=== PATIENT | male | born 1980 | race African-American/Black ===

== ENCOUNTER 2018-05-24 02:25 | Inpatient (IN) | payer BC ==
[~2018-05-24] VITALS: Ht 172.7 cm; Wt 136.1 kg
[2018-05-24 06:49] LABS: BASOPHILS % 0.8 % (0.0-2.0); HEMATOCRIT. 38.9 % (42.0-52.0); HEMOGLOBIN. 12.5 g/dL (14.0-18.0); LYMPHOCYTES % 23.6 % (20.0-50.0); MEAN CORPUSCULAR HEMOGLOBIN 29.3 pg (28.0-32.0); MEAN CORPUSCULAR VOLUME 91.3 fL (80.0-94.0); MEAN PLATELET VOLUME 10.7 fl (7.4-10.4); MONOCYTES % 3.8 % (2.0-8.0); NEUTROPHILS % 70.8 % (40.0-76.0); PLATELET 379 x1000/uL (130-400); RED BLOOD CELL COUNT 4.26 mill/uL (4.7-6.1); RED CELL DISTRIBUTION WIDTH 15.1 % (11.6-14.6)
[2018-05-24 07:03] LABS: CHLORIDE 108 mEq/L (98-107)
[2018-05-24 07:20] LABS: *AMPHETAMINES SCREEN URINE NEGATIVE (NEGATIVE); *BARBITURATES SCREEN URINE NEGATIVE (NEGATIVE); *BENZODIAZEPINES SCREEN URINE NEGATIVE (NEGATIVE); *COCAINE SCREEN URINE NEGATIVE (NEGATIVE); CANNABINOID URINE SCREEN NEGATIVE (NEGATIVE); METHADONE URINE SCREEN NEGATIVE (NEGATIVE); OPIATES URINE SCREEN NEGATIVE (NEGATIVE); PHENCYCLIDINE URINE SCREEN NEGATIVE (NEGATIVE)
[2018-05-24] MEDS ORDERED: FUROSEMIDE 40MG/4ML VIAL IV ONE (07:45)
[2018-05-24] MEDS ORDERED: NITROGLYCERIN 0.4MG TABLET SL SL PRN (07:45)
[2018-05-24] MEDS ORDERED: ASPIRIN 81MG TABLET PO ONE (07:45)
[2018-05-24 15:36] VITALS: BP 115/64
[2018-05-24] MEDS ORDERED: CARV3.1242 PO (18:38)
[2018-05-24] MEDS ORDERED: SACU1TAB PO (18:38)
[2018-05-24] MEDS ORDERED: ATOR20TA65 PO (18:38)
[2018-05-24] MEDS ORDERED: FURO40TA5 PO (18:38)
[2018-05-24 20:00] VITALS: BP 97/51
[2018-05-24] MEDS ORDERED: ONDANSETRON HCL 4MG/2ML INJ IV PRN (20:15)
[2018-05-24] MEDS ORDERED: CLONIDINE 0.1MG TABLET PO PRN (20:15)
[2018-05-24] MEDS ORDERED: METOLAZONE 10MG TABLET PO SCH (20:15)
[2018-05-24] MEDS ORDERED: MAGNESIUM/ALUMINUM HYDROXIDE/SIMETHICONE 30ML UDC PO PRN (20:15)
[2018-05-24] MEDS ORDERED: ACETAMINOPHEN 325MG TABLET PO PRN (20:15)
[2018-05-24] MEDS ORDERED: ZOLPIDEM TARTRATE 5MG TABLET PO PRN (20:15)
[2018-05-24] MEDS: CARVEDILOL 3.125 MG TABLET PO SCH (20:38)
[2018-05-24] MEDS ORDERED: FUROSEMIDE 40MG/4ML VIAL IVP SCH (21:00)
[2018-05-24] MEDS: ENOXAPARIN 30MG/0.3ML SYR SUBCUT SCH (21:56)
[2018-05-24] MEDS: ATORVASTATIN CALCIUM 20MG TABLET PO SCH (21:56)
[2018-05-24] MEDS: SODIUM CHLORIDE 0.9% INJ 3ML FLUSH IVF SCH (21:57)
[2018-05-25] VITALS: BP 104/71
[2018-05-25 04:00] VITALS: BP 119/80
[2018-05-25] MEDS: SODIUM CHLORIDE 0.9% INJ 3ML FLUSH IVF SCH ×3 (05:17→21:29)
[2018-05-25 07:36] LABS: CHLORIDE 103 mEq/L (98-107)
[2018-05-25 08:00] VITALS: BP 117/86
[2018-05-25] MEDS: CARVEDILOL 3.125 MG TABLET PO SCH ×2 (10:44→21:00)
[2018-05-25] MEDS: ENOXAPARIN 30MG/0.3ML SYR SUBCUT SCH ×2 (10:45→21:29)
[2018-05-25 12:00] VITALS: BP 123/76
[2018-05-25] MEDS ORDERED: LOSARTAN POTASSIUM 25 MG TABLET PO SCH (14:15)
[2018-05-25] MEDS ORDERED: METOLAZONE 10MG TABLET PO SCH (14:15)
[2018-05-25] MEDS: POTASSIUM CHLORIDE 20MEQ TABLET SR PO SCH ×2 (14:43→21:28)
[2018-05-25] MEDS: FUROSEMIDE 40MG/4ML VIAL IVP SCH (14:51)
[2018-05-25 16:00] VITALS: BP 118/80
[2018-05-25 20:00] VITALS: BP 101/42
[2018-05-25] MEDS: ATORVASTATIN CALCIUM 20MG TABLET PO SCH (21:29)
[2018-05-26] VITALS: BP 106/61
[2018-05-26 04:00] VITALS: BP 100/65
[2018-05-26] MEDS: SODIUM CHLORIDE 0.9% INJ 3ML FLUSH IVF SCH ×2 (05:48→09:37)
[2018-05-26] MEDS: FUROSEMIDE 40MG/4ML VIAL IVP SCH ×2 (05:48→17:12)
[2018-05-26 07:19] LABS: CHLORIDE 98 mEq/L (98-107)
[2018-05-26 07:29] LABS: BASOPHILS % 0.7 % (0.0-2.0); EOSINOPHILS % 1.7 % (0.0-5.0); HEMATOCRIT. 43.2 % (42.0-52.0); HEMOGLOBIN. 14.2 g/dL (14.0-18.0); LYMPHOCYTES % 23.7 % (20.0-50.0); MEAN CORPUSCULAR HEMOGLOBIN 29.5 pg (28.0-32.0); MEAN CORPUSCULAR VOLUME 89.7 fL (80.0-94.0); MEAN PLATELET VOLUME 9.4 fl (7.4-10.4); MONOCYTES % 5.2 % (2.0-8.0); NEUTROPHILS % 68.7 % (40.0-76.0); PLATELET 342 x1000/uL (130-400); RED BLOOD CELL COUNT 4.82 mill/uL (4.7-6.1); RED CELL DISTRIBUTION WIDTH 15.1 % (11.6-14.6)
[2018-05-26 08:00] VITALS: BP 114/81
[2018-05-26] MEDS: POTASSIUM CHLORIDE 20MEQ TABLET SR PO SCH ×2 (09:36→17:12)
[2018-05-26] MEDS: CARVEDILOL 3.125 MG TABLET PO SCH (09:36)
[2018-05-26] MEDS: ENOXAPARIN 30MG/0.3ML SYR SUBCUT SCH (09:37)
[2018-05-26 12:00] VITALS: BP 117/77
[2018-05-26 16:00] VITALS: BP 120/88
[2018-05-26 16:56] VITALS: BP 120/88
== END 2018-05-26 17:35 | disposition home or self-care (01) | DRG 291 ==
LOC: ER 02:25 → EDBEDREQ 07:50 → ENRESERV 09:23 → 7WST 10:26
PROVIDERS: ADMIT Internal Medicine; ATTEND Internal Medicine
DX: I11.0 Hypertensive heart disease with heart failure (principal); E43 Unspecified severe protein-calorie malnutrition; Z68.42 Body mass index [BMI] 45.0-49.9, adult; E87.6 Hypokalemia; I50.23 Acute on chronic systolic (congestive) heart failure; E66.01 Morbid (severe) obesity due to excess calories; E78.00 Pure hypercholesterolemia, unspecified; E78.5 Hyperlipidemia, unspecified; I42.0 Dilated cardiomyopathy; Z82.49 Family history of ischemic heart disease and other diseases of the circulatory system; Z83.3 Family history of diabetes mellitus; Z79.899 Other long term (current) drug therapy
CPT/HCPCS: 36415; 71045; 80048; 80305; 83735; 83880; 84484; 93005; 93306; 93970; 96374; 99291; J1650; J1940

== ENCOUNTER 2019-06-21 13:05 | Inpatient (IN) | payer BC ==
[~2019-06-21] VITALS: Ht 172.7 cm; Wt 155.6 kg
[~2019-06-21 13:05] MED LIST: ATOR20TA65 PO; CARV3.1242 PO; FURO80TA87 MT; SACU1TAB PO
[2019-06-21] MEDS ORDERED: SODIUM CHLORIDE 0.9% 1000ML BAG (SEPSIS BOLUS) IV ONE (13:30)
[2019-06-21] MEDS ORDERED: LEVOFLOXACIN 750MG PREMIX 150 ML IV ONE (13:30)
[2019-06-21] MEDS ORDERED: EPINEPHRINE 1:1000 1 MG/ML AMP INJ ONE ×2 (13:45→14:15)
[2019-06-21] MEDS ORDERED: ALBUTEROL (0.083%) 2.5MG/3ML NEB HHN ONE (13:45)
[2019-06-21] MEDS ORDERED: IPRATROPIUM BROMIDE (0.02%) 0.5MG/2.5ML NEB HHN ONE (13:45)
[2019-06-21] MEDS: FUROSEMIDE 100MG/10ML VIAL IVP ONE ×2 (13:48→14:11)
[2019-06-21 13:54] LABS: BASOPHILS % 0.7 % (0.0-2.0); EOSINOPHILS % 0.2 % (0.0-5.0); HEMATOCRIT. 43.1 % (42.0-52.0); HEMOGLOBIN. 14.2 g/dL (14.0-18.0); LYMPHOCYTES % 11.7 % (20.0-50.0); MEAN CORPUSCULAR HEMOGLOBIN 29.8 pg (28.0-32.0); MEAN CORPUSCULAR VOLUME 90.4 fL (80.0-94.0); MEAN PLATELET VOLUME 9.5 fl (7.4-10.4); MONOCYTES % 5.9 % (2.0-8.0); NEUTROPHILS % 81.5 % (40.0-76.0); PLATELET 214 x1000/uL (130-400); RED BLOOD CELL COUNT 4.77 mill/uL (4.7-6.1); RED CELL DISTRIBUTION WIDTH 15.4 % (11.6-14.6)
[2019-06-21 14:02] LABS: INR 1.2; PROTHROMBIN TIME 12.4 sec (9.6-11.0)
[2019-06-21 14:10] LABS: CHLORIDE 102 mEq/L (98-107)
[2019-06-21] MEDS ORDERED: METHYLPREDNISOLONE SOD SUCC 125 MG/2 ML VIAL IV ONE (14:15)
[2019-06-21 14:40] LABS: BG BASE EXCESS -1.8 mmol/L (-2.0-2.0); BG CARBOXYHEMOGLOBIN 1.6 % (0.5-1.5); BG DEOXYHEMOGLOBIN 1.3 % (0.0-5.0); BG FRACTION INSPIRED OXYGEN 60; BG HCO3 ACT 22.2 mmol/L (22.0-26.0); BG METHEMOGLOBIN 0.2 % (0.0-1.5); BG OXYGEN SATURATION 98.7 % (92.0-98.5); BG OXYHEMOGLOBIN 96.9 % (94.0-97.0); BG PCO2 35.9 mmHg (35.0-45.0); BG PO2 127.7 mmHg (75.0-100.0); BG SAMPLE SITE RIGHT RADIAL; BG TOTAL HEMOGLOBIN 14.1 g/dL (12.0-18.0)
[2019-06-21 18:00] VITALS: BP 132/67
[2019-06-21 19:30] VITALS: BP 129/29
[2019-06-21 20:00] VITALS: BP 129/29
[2019-06-21] MEDS ORDERED: IPRATROPIUM/ALBUTEROL 0.5-3(2.5)MG/3ML NEB NEB PRN (20:45)
[2019-06-21] MEDS ORDERED: HYDROCODONE/ACETAMINOPHEN 5/325MG TABLET PO PRN (20:45)
[2019-06-21] MEDS ORDERED: CLONIDINE 0.1MG TABLET PO PRN (20:45)
[2019-06-21] MEDS ORDERED: ONDANSETRON HCL 4MG/2ML INJ IV PRN (20:45)
[2019-06-21 22:00] VITALS: BP 129/108
[2019-06-21] MEDS ORDERED: PNEUMOCOCCAL 23-VAL P-SAC VAC 0.5 ML IM ONE (23:15)
[2019-06-21] MEDS ORDERED: INFLUENZA VIRUS VACCINE(AFLURIA) 0.5ML SYR IM ONE (23:15)
[2019-06-22] VITALS (12 sets, daily range): BP systolic 101–148; BP diastolic 51–98
[2019-06-22 00:06] LABS: *AMPHETAMINES SCREEN URINE NEGATIVE (NEGATIVE); *BARBITURATES SCREEN URINE NEGATIVE (NEGATIVE); *BENZODIAZEPINES SCREEN URINE NEGATIVE (NEGATIVE); *COCAINE SCREEN URINE NEGATIVE (NEGATIVE); METHADONE URINE SCREEN NEGATIVE (NEGATIVE); OPIATES URINE SCREEN NEGATIVE (NEGATIVE); PHENCYCLIDINE URINE SCREEN NEGATIVE (NEGATIVE)
[2019-06-22 00:07] LABS: CANNABINOID URINE SCREEN NEGATIVE (NEGATIVE)
[2019-06-22] MEDS ORDERED: SPIR25TA6 MT (00:20)
[2019-06-22] MEDS ORDERED: POTA10TA11 PO (00:20)
[2019-06-22] MEDS ORDERED: ASPI-1393 PO (00:20)
[2019-06-22] MEDS ORDERED: SACU1TAB7 MT (00:20)
[2019-06-22] MEDS: FUROSEMIDE 40MG/4ML VIAL IV SCH ×3 (00:36→17:23)
[2019-06-22] MEDS: THIAMINE HCL 100MG TABLET PO SCH ×2 (00:36→08:33)
[2019-06-22] MEDS: ASPIRIN 81MG EC TABLET PO SCH (08:33)
[2019-06-22] MEDS: ENOXAPARIN 40MG/0.4ML SYR SUBCUT SCH ×2 (10:26→20:33)
[2019-06-22] MEDS ORDERED: NON FORMULARY PATIENT HOME MED XX SCH (11:00)
[2019-06-22 11:30] LABS: CLARITY URINE CLEAR (CLEAR); COLOR URINE YELLOW (YELLOW); KETONES URINE NEGATIVE (NEGATIVE); LEUKOCYTE ESTERASE URINE NEGATIVE (NEGATIVE); NITRITE URINE NEGATIVE (NEGATIVE); OCCULT BLOOD URINE NEGATIVE (NEGATIVE); PROTEIN URINE NEGATIVE (NEGATIVE)
[2019-06-22] MEDS: SACUBITRIL/VALSARTAN 49MG/51MG TABLET PO SCH ×2 (11:57→20:34)
[2019-06-22] MEDS: SPIRONOLACTONE 25MG TABLET PO SCH (11:57)
[2019-06-22] MEDS: AZITHROMYCIN 500 MG TABLET PO SCH (17:23)
[2019-06-22] MEDS: CARVEDILOL 12.5MG TABLET PO SCH (20:33)
[2019-06-23] VITALS (10 sets, daily range): BP systolic 100–157; BP diastolic 29–82
[2019-06-23 06:30] LABS: BASOPHILS % 0.5 % (0.0-2.0); EOSINOPHILS % 0.6 % (0.0-5.0); HEMATOCRIT. 41.7 % (42.0-52.0); HEMOGLOBIN. 13.5 g/dL (14.0-18.0); LYMPHOCYTES % 27.4 % (20.0-50.0); MEAN CORPUSCULAR VOLUME 89.8 fL (80.0-94.0); MONOCYTES % 8.3 % (2.0-8.0); NEUTROPHILS % 63.2 % (40.0-76.0); PLATELET 202 x1000/uL (130-400); RED BLOOD CELL COUNT 4.65 mill/uL (4.7-6.1); RED CELL DISTRIBUTION WIDTH 15.3 % (11.6-14.6)
[2019-06-23 07:13] LABS: CHLORIDE 100 mEq/L (98-107)
[2019-06-23] MEDS: SPIRONOLACTONE 25MG TABLET PO SCH (08:56)
[2019-06-23] MEDS: ASPIRIN 81MG EC TABLET PO SCH (08:56)
[2019-06-23] MEDS: FUROSEMIDE 40MG/4ML VIAL IV SCH ×2 (08:56→17:42)
[2019-06-23] MEDS: ENOXAPARIN 40MG/0.4ML SYR SUBCUT SCH ×2 (08:57→20:32)
[2019-06-23] MEDS: AZITHROMYCIN 500 MG TABLET PO SCH (08:57)
[2019-06-23] MEDS: THIAMINE HCL 100MG TABLET PO SCH (08:57)
[2019-06-23] MEDS: CARVEDILOL 12.5MG TABLET PO SCH ×2 (08:57→20:32)
[2019-06-23] MEDS: SACUBITRIL/VALSARTAN 49MG/51MG TABLET PO SCH ×2 (09:31→20:32)
[2019-06-23] MEDS: CEFTRIAXONE 1 G PREMIX 50 ML IV SCH (13:33)
[2019-06-23] MEDS ORDERED: FUROSEMIDE 40MG/4ML VIAL IVP NR (14:45)
[2019-06-24] VITALS (10 sets, daily range): BP systolic 96–125; BP diastolic 45–70
[2019-06-24] MEDS: FUROSEMIDE 40MG/4ML VIAL IV SCH (06:34)
[2019-06-24 08:05] LABS: CHLORIDE 102 mEq/L (98-107)
[2019-06-24 08:19] LABS: BASOPHILS % 0.6 % (0.0-2.0); HEMATOCRIT. 43.6 % (42.0-52.0); HEMOGLOBIN. 14.1 g/dL (14.0-18.0); LYMPHOCYTES % 29.6 % (20.0-50.0); MEAN CORPUSCULAR HEMOGLOBIN 28.8 pg (28.0-32.0); MEAN PLATELET VOLUME 9.8 fl (7.4-10.4); MONOCYTES % 13.9 % (2.0-8.0); NEUTROPHILS % 51.9 % (40.0-76.0); PLATELET 224 x1000/uL (130-400); RED CELL DISTRIBUTION WIDTH 15.3 % (11.6-14.6)
[2019-06-24] MEDS: ENOXAPARIN 40MG/0.4ML SYR SUBCUT SCH (09:26)
[2019-06-24] MEDS: ASPIRIN 81MG EC TABLET PO SCH (09:26)
[2019-06-24] MEDS: THIAMINE HCL 100MG TABLET PO SCH (09:26)
[2019-06-24] MEDS: SPIRONOLACTONE 25MG TABLET PO SCH (09:26)
[2019-06-24] MEDS: AZITHROMYCIN 500 MG TABLET PO SCH (09:27)
[2019-06-24] MEDS: CARVEDILOL 12.5MG TABLET PO SCH (09:27)
[2019-06-24] MEDS: SACUBITRIL/VALSARTAN 49MG/51MG TABLET PO SCH (09:27)
[2019-06-24] MEDS: CEFTRIAXONE 1 G PREMIX 50 ML IV SCH (11:11)
[2019-06-24] MEDS ORDERED: LEVO500T2 MT (11:43)
== END 2019-06-24 15:16 | disposition home or self-care (01) | DRG 871 ==
LOC: ER 13:05 → 5EST 13:50 → EDBEDREQTM 14:22 → EDBEDREQ 14:22 → ENRESERV 17:04 → 8WST 06-24 10:31
PROVIDERS: ADMIT Internal Medicine Nephrology; ATTEND Internal Medicine Nephrology
DX: A41.9 Sepsis, unspecified organism (principal); I50.23 Acute on chronic systolic (congestive) heart failure; N17.0 Acute kidney failure with tubular necrosis; J96.00 Acute respiratory failure, unspecified whether with hypoxia or hypercapnia; J18.9 Pneumonia, unspecified organism; E87.1 Hypo-osmolality and hyponatremia; I42.0 Dilated cardiomyopathy; Z68.43 Body mass index [BMI] 50.0-59.9, adult; I11.0 Hypertensive heart disease with heart failure; I27.20 Pulmonary hypertension, unspecified; E78.5 Hyperlipidemia, unspecified; E66.01 Morbid (severe) obesity due to excess calories; E11.9 Type 2 diabetes mellitus without complications; Z82.49 Family history of ischemic heart disease and other diseases of the circulatory system
CPT/HCPCS: 36415; 36600; 71045; 80048; 80305; 81003; 82375; 82805; 82962; 83605; 83735; 83880; 84145; 84484; 87076; 87804; 93005; 93306; 93970; 94644; 99291; J0696; J1650; J1940; J1956; J2930; J3490; J7030; J7611